=== PATIENT | male | born 1935 | race Caucasian/White ===

== ENCOUNTER 2016-11-25 14:43 | Emergency (ER) | payer MEDICARE, BC ==
[2016-11-25] MEDS ORDERED: DIPHTH,PERTUSS(ACELL),TET VAC 0.5 ML VIAL IM ONE ×2 (15:43→15:45)
--- NOTE | 2016-11-25 15:56 | ERNOTE ---
Upper Extremity HPI - General Extremities Pain Location: 3rd finger: right Source: patient Exam Limitations: no limitations - Immun/Allergies/Home Medications Immunizations: IMMUNIZATION HX Immunizations Up to Date No History of Influenza Vaccine Yes Hx Pneumococcal Vaccination Yes Allergies/Adverse Reactions: Allergies Allergy/AdvReac Type Severity Reaction Status Date / Time No Known Allergies Allergy Unverified 01/22/15 14:32 Home Medications: HOME MEDICATIONS Acetaminophen [Tylenol] 1,000 mg PO Q6H PRN 01/22/15 [Last Taken Unknown] Aspirin [Aspirin EC] 81 mg PO DAILY 01/22/15 [Last Taken Unknown] Atenolol [Tenormin] 50 mg PO DAILY 01/22/15 [Last Taken Unknown] Atorvastatin Calcium [Lipitor] 20 mg PO DAILY 01/22/15 [Last Taken Unknown] [place]-3 Fatty Acids [Fish Oil] 500 mg PO DAILY 01/22/15 [Last Taken Unknown] Rabeprazole Sodium [Aciphex] 20 mg PO DAILY 01/22/15 [Last Taken Unknown] glipiZIDE [Glucotrol Xl] 5 mg PO DAILY 01/22/15 [Last Taken Unknown] metFORMIN HCL [Glucophage] 500 mg PO DAILY 01/22/15 [Last Taken Unknown] - History of Present Illness Narrative: Patient was in a store looking at an old metal fan when the fan fell over, he got his finger caught in the fan and sustained a laceration in his left middle finger, denies any other injuries, washed his finger in the sink for a few minutes Date (Duration): 11/25/16 Time (Timing): 13:00 Location of Incident: other Review of Systems - Review of Systems Constitutional: Absent: recent illness, fever EYE: Absent: double vision ENT: Absent: sore throat Respiratory: Absent: shortness of breath Cardiology: Absent: chest pain Gastrointestinal/Abdominal: Absent: nausea, vomiting, abdominal pain Genitourinary: Present: no symptoms reported Musculoskeletal: Present: See HPI Neurological: Absent: weakness, numbness - Patient's Past Medical History Patient History - Medical: Diabetes Type 2 Patient History - Cardiac/Respiratory: Hypertension, Hyperlipidemia, Myocardial Infarction Patient History - Cancer: No Hx of Cancer, Chemotherapy history Patient History - Surgical Procedures: Cancer Surgery, Cholecystectomy, Cardiac stent Patient History - Other: None - Social History Living Situations: home Abuse History: No History of abuse Psych History: No pertinent hx Smoking Status: Never smoker Have you smoked in the past 12 months: No Do you dip or chew tobacco: No Alcohol Use: rarely Drug Use: none - Immunizations Immunizations Up to Date: No Hx Pneumococcal Vaccination: Yes History of Influenza Vaccine: Yes Physical Exam - Physical Exam General Appearance: Present: wd/wn, alert, no apparent distress Respiratory: Present: no respiratory distress, lungs clear Cardiovascular/Chest: Present: regular rate, rhythm, no murmur Extremity Exam: Present: normal except - - laceration right middle finger tip Neurological Exam: Present: alert, oriented, normal mood/affect Skin Exam: Present: normal color, warm/dry ED Progress - Vital Signs Patient's Vital Signs:: I have reviewed the patient's vital signs. Vital Signs: Vital Signs 11/25/16 11/25/16 14:56 15:43 Temperature 36.7 C 36.6 C Pulse Rate 57 L 55 L Respiratory 15 16 Rate Blood Pressure 134/85 145/91 O2 Sat by Pulse 97 96 Oximetry - Progress/Reassessment Chief Complaint: Upper Extremity Injury/Problem Procedures Right Hand 3rd Digit Anesthesia: 1% Lidocaine, Digital Block Wound's Depth/Shape: into subcutaneous, into muscle, linear, flap Wound Explored: clean, no foreign body Wound Intervention: irrigated w/saline Distal NVT: neuro/vasc intact - slightly decreased senstaion finger tip Suture Size/Type: 4-0, prolene Number of Sutures: 6 Estimated blood loss (ml): 1 Wound Dressing: sterile dressing applied Complications: Pt mc procedure well Departure Clinical Impression: Injury of tip of finger of right hand Qualifiers: Encounter type: initial encounter Qualified Code(s): S69.91XA - Unspecified injury of right wrist, hand and finger(s), initial encounter - Departure Disposition: Home self-care Condition: Good Instructions: Laceration Care, Adult, [id number] Additional Instructions: keep the wound dry and clean have the sutures removed in 10 days Referrals: Jessica Burris MD [Primary Care Provider] -
[2016-11-25 17:01] VITALS: BP 152/100
== END 2016-11-25 17:02 | disposition home or self-care (01) ==
LOC: ER 14:43
PROC: 0JQJ0ZZ Repair Right Hand Subcutaneous Tissue and Fascia, Open Approach (ICD-10-PCS; principal; 2016-11-25)
DX: S61.213A Laceration without foreign body of left middle finger without damage to nail, initial encounter (principal); X58.XXXA Exposure to other specified factors, initial encounter; Y93.89 Activity, other specified; Y92.512 Supermarket, store or market as the place of occurrence of the external cause; Z23 Encounter for immunization; E11.9 Type 2 diabetes mellitus without complications; I10 Essential (primary) hypertension; E78.5 Hyperlipidemia, unspecified; I25.2 Old myocardial infarction